=== PATIENT | female | born 1990 | race Caucasian/White ===

== ENCOUNTER 2023-01-02 09:10 | Emergency (ER) | payer MEDICAID, OTHER ==
[~2023-01-02] VITALS: Ht 167.6 cm; Wt 135.0 kg
[2023-01-02 09:10] VITALS: BP 108/7
[~2023-01-02 09:10] MED LIST: IRONPOW5; [UNRECOGNIZED DRUG - CODE]
[2023-01-02] MEDS ORDERED: KETOROLAC TROMETH 30 MG/ML 1ML VIAL IV ONE (09:15)
== END 2023-01-02 10:00 | disposition left against medical advice (07) ==
LOC: EDBD 09:10 → ER 09:10
DX: S00.81XA Abrasion of other part of head, initial encounter (principal); S09.90XA Unspecified injury of head, initial encounter; R10.9 Unspecified abdominal pain; R07.81 Pleurodynia; F17.210 Nicotine dependence, cigarettes, uncomplicated; Z79.899 Other long term (current) drug therapy; V47.5XXA Car driver injured in collision with fixed or stationary object in traffic accident, initial encounter; Y93.89 Activity, other specified; Y92.410 Unspecified street and highway as the place of occurrence of the external cause; Y99.8 Other external cause status